=== PATIENT | female | born 1955 | race Caucasian/White ===

== ENCOUNTER 2019-01-22 08:37 | Day surgery (SDC) | payer BC ==
--- NOTE | 2019-01-22 06:39 | History and Physical - Ferro ---
CHIEF COMPLAINT/HISTORY OF CHIEF COMPLAINT: This patient presents with a history of intractable thoracic radiculopathy and intercostal neuritis. Due to the failure of therapy, a spinal cord stimulator trial was conducted on 12/10/18 with 75-85% pain control. Due to the failure of therapy and the success of the trial, the patient presents today for implantation of a permanent system. PAST MEDICAL HISTORY: Reflux esophagitis, intercostal neuritis, and thoracic radiculopathy. PAST SURGICAL HISTORY: Oral surgery and carpal tunnel surgery. MEDICATIONS ON ADMISSION: List to be provided. ALLERGIES: None. FAMILY/PSYCHOSOCIAL HISTORY: Social history - Social alcohol and caffeine. Family history - Noncontributory. SYSTEMS REVIEW: The patient seems appropriate in no acute distress. The remainder of the systems review is positive for depression. PHYSICAL EXAMINATION: Height is 5'3", weight is 150. No vital signs. HEENT: Within normal limits. LUNGS: Clear. HEART: Rapid and regular. ABDOMEN: Nontender. MUSCULOSKELETAL: Examination of the musculoskeletal system shows diffuse tenderness throughout the thoracic spine. There is an extension along the scapular borders and along the rib margins towards the posterior and anterior axillary line. Sensory arboleda are intact. NEUROLOGIC: Cranial nerves are intact. IMPRESSION: THORACIC RADICULOPATHY, ICD-10 CODE M54.14 WITH INTERCOSTAL NEURITIS, ICD-10 CODE G58.0. PLAN: Due to the failure of all conservative therapy and the success of the trial of a spinal cord stimulator trial, the patient presents today for implantation of a permanent system. The procedure will be considered outpatient although an overnight stay will be evaluated. The potential risks, side effects and complications have all been reviewed and discussed. [facility] [id number] [facility]
[~2019-01-22 08:37] MED LIST: ACETAMINOPHEN 1,000 MG/100 ML BTL IVPB ONE; CLINDAMYCIN 600MG/50ML PREMIX 600 MG/50 ML BAG IVPB ONE; FAMOTIDINE 20MG TABLET PO ONE; MECLIZINE 25 MG TABLET PO ONE; METOCLOPRAMIDE 10 MG TABLET PO ONE
[2019-01-22] MEDS ORDERED: MIDAZOLAM HCL 2MG/2ML VIAL IV ONE (08:38)
[2019-01-22] MEDS ORDERED: LIDOCAINE 2% MDV (20MG/ML) 20ML VIAL IV ONE (08:38)
[2019-01-22] MEDS ORDERED: PROPOFOL 10 MG/ML VIAL IV ONE (08:38)
[2019-01-22] MEDS ORDERED: FENTANYL PF 100MCG/2ML VIAL IV ONE (08:38)
[2019-01-22] MEDS ORDERED: 0.9 % SODIUM CHLORIDE 1000ML 1,000 ML IV ONE (09:20)
[2019-01-22] MEDS ORDERED: Clindamycin 600mg vial 150 MG/ML VIAL IR ONE (11:06)
[2019-01-22] MEDS ORDERED: LIDOCAINE 1% W/EPI 1:100,000 MDV 20 ML VIAL SQ ONE (11:49)
[2019-01-22] MEDS ORDERED: BUPIVACAINE 0.5% W/EPI MPF 30 ML VIAL SQ ONE (11:50)
[2019-01-22] MEDS ORDERED: OXYCODONE/APAP 10MG-325MG TABLET PO ONE (12:44)
--- NOTE | 2019-01-22 14:01 | Operative Note - Ferro ---
DATE OF SURGERY: 01/22/2019 PREOPERATIVE DIAGNOSIS: THORACIC RADICULOPATHY, ICD-10 CODE M54.14 AND LUMBAR RADICULOPATHY, ICD-10 CODE M54.16. OPERATION: 1. FLUOROSCOPICALLY GUIDED EPIDURAL ACCESS LEFT T11-T12 , PLACEMENT OF SPINAL CORD STIMULATOR LEAD 1 [employer] 16, 6-ELECTRODES POSITIONED LEFT T5. 2. FLUOROSCOPICALLY GUIDED EPIDURAL ACCESS LEFT T12-L1, PLACEMENT OF SPINAL CORD STIMULATOR LEAD 2 [employer] 16, 6-ELECTRODES POSITIONED RIGHT T5. 3. COMPLEX PROGRAMMING OF LEAD 1 OVER TWENTY MINUTES FOLLOWED BY COMPLEX PROGRAMMING OF LEAD 2 OVER TWENTY MINUTES. 4. INCISION, SUBCUTANEOUS DISSECTION, ANCHORING LEAD 1 AND LEAD 2 TO THE SUPRASPINOUS FASCIA USING A [employer] LOCKING ANCHOR NONABSORBABLE SUTURE. 5. INCISION, SUBCUTANEOUS DISSECTION, CREATION OF SUBCUTANEOUS POUCH RIGHT POSTERIOR GLUTEAL MARGIN FOR PLACEMENT OF GENERATOR, [employer] PROGRAMMABLE RECHARGEABLE WAVEWRITER. 6. TUNNELLING BETWEEN LEAD POUCH AND GENERATOR POUCH, PLACEMENT OF THE EXTERNAL PORTION OF LEAD 1 AND LEAD 2 INTO GENERATOR POUCH, EACH LEAD INTERFACES THE GENERATOR. 7. CLOSURE OF INCISIONS USING STRATAFIX SUTURE 2-0 FASCIA AND 3-0 SKIN. DERMABOND CLOSURE AT BOTH INCISIONS. 8. COMPLEX RECOVERY ROOM PROGRAMMING INTERNAL GENERATOR HOME USE TWO STIMULATORS RECOVERY ROOM TWENTY MINUTES. SURGEON: Darryn Montalvo D.O. ANESTHESIA: Local sedation. ANESTHESIA PROVIDER: Devan Harmon CRNA INDICATION: This patient presents with a history of intractable lumbar radiculopathy. Due to the failure of therapies and the success of the stimulator trial, the patient presents today for implantation of a permanent system. PROCEDURE: Intravenous line, vital sign monitoring, IV sedation, prepped and draped, sterile technique. Under imaging the epidural interspace with the patient prone, sterile prep, sterile technique, local for infiltration. The epidural interspace from the left at T11-T12 and T12-L1 are both marked, infiltrated with local, then using two standard epidural needles loss of resistance the space was accessed, atraumatic. No blood. No CSF. At T11-T12 spinal cord stimulator Lead 1, a [employer] 16, 6-electrodes was advanced into the epidural space under imaging navigated to T5. With the access at T12-L1 spinal cord stimulator Lead 2 also [employer] 16, 6- electrodes was positioned and navigated right of the midline up to T5. Complex programming of Lead 1 over twenty minutes followed by complex programming of Lead 2 over twenty minutes resulted in complete pattern of stimulation across the back and into the thoracic as well as lumbar regions. The patient is indicating we hit all of the areas of the pain. She was at that point given the option to implant the system, continue to program or remove, she opted to implant. All questions were repeated with the same response. She was then re- sedated, the skin above the below both needles was infiltrated with local, and then an incision was made and subcutaneous dissection was conducted to the supraspinous fascia. The needles were removed and each lead was anchored to the supraspinous fascia with a locking anchor nonabsorbable suture. At the right posterior glutea margin at a site picked by the patient for the generator, the skin was infiltrated, incision made, and subcutaneous dissection was conducted to form a pouch of suitable size and depth for the generator [employer] programmable rechargeable WaveWriter. Antibiotic irrigation, Bovie for hemostasis. A tunnelling tool was used to carry the leads into the generator pouch and each lead was interfaced with the generator. The generator was then placed into the pouch, the leads were placed into their own pouch and then both incisions were closed using Stratafix suture 2-0 fascia and 3-0 skin. A Dermabond closure was then used to approximate the edges of both wounds. She was transported to the Recovery Room stable. No side effects from the procedure or sedation. When fully awake and alert, complex programming was then performed re-establishing stimulation and pain control to all of the appropriate areas. She was instructed on the use of the system, provided information on error messages and then prepared for discharge. DISCHARGE INSTRUCTIONS: 1. The sites are to remain clean and dry. No showering or bathing in any way that would disrupt the dressings. Although the Dermabond will allow showering, she should not sit in water. 2. Standard medications are resumed including the antibiotic Levaquin, she will take 500 mg once a day for fourteen days. 3. Office to contact the patient in 12-24 hours to set up a time in 7-10 days for us to check the sites. Through that period of time she will keep her activities low. Limit bend, lift, push, pull. All other instructions are provided. The antibiotic has been called and instructions ere given. We will see her in the office to evaluate sites. JOB NUMBER: [id number] [facility]
--- NOTE | 2019-01-23 16:17 | RADIOLOGY REPORT ---
EXAMINATION: Thoracic Spine Single View EXAM DATE: 01/22/2019 12:18 PM TECHNIQUE: Frontal view of the thoracic spine INDICATION: S/P SCS IMPLANT COMPARISON: None ENCOUNTER: Initial FINDINGS: There is an electronic device projecting over the right side of the upper abdomen with leads in train ee central canal at the L1 S2 level and extending cephalad with a lead tips located at the T4-5 level . No vertebral anomaly is seen. There is minimal long segment dextroconvex curvature of the thoracic spine. IMPRESSION: 1. Lead tips projected the T4-5 level. 2. Minimal long segment dextroconvex curvature of the thoracic spine. Dictated by: Quan Alberto MD on 01/23/2019 4:14 PM. .
== END 2019-01-22 13:00 | disposition home or self-care (01) ==
LOC: SUR 08:37
PROVIDERS: ATTEND Pain Medicine Interventional Pain Medicine
DX: M54.14 Radiculopathy, thoracic region (principal); M54.16 Radiculopathy, lumbar region; I10 Essential (primary) hypertension
CPT/HCPCS: 63650; 63685; 01936; 95972; 72020; C1883; C1820; J3010; J7030